=== PATIENT | female | born 1985 ===

== ENCOUNTER → 2020-03-28 | Outpatient (CLI) | payer OTHER ==
[~2020-03-28] MED LIST: IBU600 MG PO; PERCOCET 325 MG1 TA2 PO; PRENATAL TABLET PO
== END | disposition still patient (30) ==
LOC: ZCOL.LAB 05:47
DX: Z20.828 Contact with and (suspected) exposure to other viral communicable diseases (principal)

== ENCOUNTER 2020-04-02 05:08 | Inpatient (IN) | payer OTHER ==
[2020-04-02] VITALS (72 sets, daily range): BP systolic 99–136; BP diastolic 50–78; PULSE 70–109; TEMP 97–98.3
[~2020-04-02] VITALS: Ht 160 cm; Wt 94.5 kg
--- NOTE | 2020-04-02 05:20 | NUR ---
Ambulatory to unit, for induction, accompanied by spouse. Oriented to room, monitor, plan of care. Questions invited and answered.
[2020-04-02 05:46] LABS: BASO % 0.3 % (0.0-2.0); EOS # 0.1 (0.0-0.7); EOS % 0.7 % (0-4.0); GRAN % 71.5 % (42.2-75.2); HEMOGLOBIN 11.9 g/dl (12.5-16.0); LYMPH # 1.3 (1.2-3.4); LYMPH % 19.1 % (20.0-51.0); MEAN CELL VOLUME 94 fl (80.0-100.0); MEAN CORPUSCULAR HEMOGLOBIN 31 pg (27.0-31.0); MEAN CORPUSCULAR HGB CONC 33 g/dl (33.0-37.0); MEAN PLATELET VOLUME 10.6 fl (7.4-10.4); MONO # 0.5 (0.1-0.6); PLATELET COUNT 188 K/mm3 (130-400); RED BLOOD COUNT 3.84 M/mm3 (4.10-5.30); REDCELL DISTRIBUTION WIDTH-CV 14.2 % (11.5-14.5)
[2020-04-02] MEDS ORDERED: PRENATAL TABLET PO (05:50)
[2020-04-02 05:53] LABS: HEMATOCRIT 35.9 % (37.0-47.0)
--- NOTE | 2020-04-02 11:29 | NUR ---
DECEL NOTED at 1043. returned to baseline. dr lafleur on unit reviewing efm
--- NOTE | 2020-04-02 22:00 | NUR ---
Dr. Rankin at bedside for SVE. 3. MD reviewed plan of care with patient and spouse, questions answered. FHR tracing reviewed, physician comfortable with strip and pitocin at 23 mu/min.
[2020-04-03] VITALS (59 sets, daily range): BP systolic 108–149; BP diastolic 60–96; PULSE 72–141; TEMP 98.1–98.8
--- NOTE | 2020-04-03 06:20 | NUR ---
Bedside report from Ania RICE at this time. Patient reports upper abdominal pain with contractions. SVE /0 per Ania RN. Patient vomits 200ml bile colored emesis. Cold rag provided. Eladia DE LA ROSA to bedside for bolus dose. Epidural retaped. Patient positioned to right lateral with peanut ball in place. Call light within reach.
--- NOTE | 2020-04-03 07:20 | NUR ---
Patient calls out reporting pain with contractions. SVE 10/100/+2 per . Eladia [employer]IAN to room to dose epidural. Patient and room prepped to begin pushing.
--- NOTE | 2020-04-03 07:35 | NUR ---
0732: Mckeon catheter dc'd by this RN to begin pushing. 0738: Initial push. This RN remains at bedside during pushing.
--- NOTE | 2020-04-03 10:30 | NUR ---
0958: at bedside to evaluate pushing progress. Eladia DE LA ROSA at bedside for epidural dose. 1005: Red Ike catheter used to drain bladder by . 1010: Vacuum extraction discussed with patient and . Patient elects to try vacuum due to maternal exhaustion. 1011: Vacuum on. Pressure used with contraction. 1013: Vacuum on. Pressure used with contraction. 1015: Vacuum on. One pop off noted. 1019: Vacuum on. Pressure used with contraction. 1021: Vacuum on. One pop off noted. 1023: Vacuum on. One pop off noted. 1024: section decided. Mckeon cathter placed by . 1028: EFMs off. Patient to OR via labor bed.
--- NOTE | 2020-04-03 11:35 | NUR ---
Patient into PACU via bed. This RN remains at bedside.
--- NOTE | 2020-04-03 12:10 | NUR ---
Patient to Room 211 via bed. Oriented to room and plan of care.
--- NOTE | 2020-04-03 18:30 | NUR ---
Ambulates to the bathroom. Catheter taken out, ella-care given. New gown on, binder on. Ambulates back to bed.
[2020-04-04 05:39] VITALS: BP 110/65; PULSE 99; TEMP 97.8
[2020-04-04 06:00] LABS: HEMOGLOBIN 11.2 g/dl (12.5-16.0)
[2020-04-04 06:01] LABS: HEMATOCRIT 33.3 % (37.0-47.0)
[2020-04-04 08:15] VITALS: BP 107/58; PULSE 88; TEMP 98
[2020-04-04] MEDS ORDERED: PERCOCET 325 MG1 TA2 PO (08:33)
[2020-04-04] MEDS ORDERED: IBU600 MG PO (08:33)
--- NOTE | 2020-04-04 10:24 | NUR ---
Initial visit; Parents thanked Assembler Piano for offering congratulations and God's blessings for the of their son. Assembler Piano thanked family for choosing [facility].
[2020-04-04 16:20] VITALS: BP 118/58; PULSE 104; TEMP 97.8
[2020-04-04 19:46] VITALS: BP 125/72; PULSE 101; TEMP 98.5
[2020-04-05 08:21] VITALS: BP 118/68; PULSE 76; TEMP 98.2
== END 2020-04-05 11:47 | disposition home or self-care (01) | DRG 788 ==
LOC: LDR 05:08 → OB 09:03
PROVIDERS: ADMIT Obstetrics & Gynecology
PROC: 10D00Z1 Extraction of Products of Conception, Low, Open Approach (ICD-10-PCS; principal; 2020-04-03)
DX: O48.0 Post-term pregnancy (principal); Z3A.41 41 weeks gestation of pregnancy; Z37.0 Single live birth; O62.2 Other uterine inertia; O33.9 Maternal care for disproportion, unspecified
CPT/HCPCS: J0690; J1885; J2400; J2405; J2590; J2795; J7120; J7121